=== PATIENT | male | born 1940 | race Caucasian/White ===

== ENCOUNTER 2018-04-29 15:45 | Emergency (ER) | payer MEDICARE ==
[~2018-04-29] VITALS: Ht 188 cm; Wt 93.0 kg
[~2018-04-29 15:45] MED LIST: ONDANSETRON 4 MG/2 ML (SDV) Z0FRAN ONE
[2018-04-29] MEDS ORDERED: ACETAMINOPHEN 500 MG TAB (TYLENOL) PO STA (15:57)
[2018-04-29 16:08] LABS: BASOPHILS % (AUTO) 0 % (0-10); EOSINOPHILS # (AUTO) 0.1 10^3/uL (0.0-0.3); EOSINOPHILS % (AUTO) 1 % (0-10); HEMATOCRIT 35 % (40-54); HEMOGLOBIN 11.3 G/DL (13.3-17.7); LYMPHOCYTES # (AUTO) 0.2 X 10^3 (1.0-4.0); LYMPHOCYTES % (AUTO) 3 % (12-44); MEAN CORPUSCULAR HEMOGLOBIN 33 PG (25-34); MEAN CORPUSCULAR HGB CONC 32 G/DL (32-36); MEAN CORPUSCULAR VOLUME 104 FL (80-99); MONOCYTES # (AUTO) 0.7 X 10^3 (0.0-1.0); MONOCYTES % (AUTO) 10 % (0-12); NEUTROPHILS # (AUTO) 5.9 X 10^3 (1.8-7.8); NEUTROPHILS % (AUTO) 85 % (42-75); PLATELET COUNT 113 10^3/uL (130-400); RED BLOOD COUNT 3.39 10^6/uL (4.35-5.85); RED CELL DISTRIBUTION WIDTH 18.1 % (10.0-14.5)
[2018-04-29 16:12] LABS: INR 1.2 (0.8-1.4); PROTHROMBIN TIME PATIENT 15.5 SEC (12.2-14.7)
[2018-04-29 16:22] LABS: ALBUMIN 3.8 GM/DL (3.2-4.5); BILIRUBIN,TOTAL 2.1 MG/DL (0.1-1.0); CALCIUM 8.4 MG/DL (8.5-10.1); CREATININE SERUM 4.03 MG/DL (0.60-1.30); POTASSIUM 3.9 MMOL/L (3.6-5.0); TOTAL PROTEIN 6.9 GM/DL (6.4-8.2)
[2018-04-29 16:29] LABS: ANISOCYTOSIS SLIGHT; BAND NEUTROPHILS 35 %; BASOPHILS % (MANUAL) 0 %; EOSINOPHILS % (MANUAL) 0 %; LYMPHOCYTES % (MANUAL) 3 %; MONOCYTES % (MANUAL) 12 %; NEUTROPHILS % (MANUAL) 50 %; TOXIC GRANULATION/VACUOLAZATIO 1+
[2018-04-29] MEDS ORDERED: NS IV 500 ML 500 ML ONE (16:38)
[2018-04-29] MEDS ORDERED: NS IV 500 ML 500 ML IV ONE (16:40)
--- NOTE | 2018-04-29 16:46 | ED General ---
General Chief Complaint: Fever-Adult/Adol Stated Complaint: FEVER Nursing Triage Note: PT ARRIVED PER EMS, FROM DIALYSIS PT CO OF FEVER AND HAS SL CONFUSION STARTED THIS AFTERNOON. PT FINISHED DIALYSIS. Nursing Sepsis Screen: No Definite Risk Source of Information: Patient Exam Limitations: No Limitations History of Present Illness Date Seen by Provider: Apr 29, 2018 Time Seen by Provider: 15:52 Initial Comments Here with report of fever and altered mental status. reports that he was somewhat confused yesterday and there was a little better and then went to dialysis today. He is afebrile at the start of dialysis but at the end if temperature 103 degrees. Heart rate. EMS had same on their arrival. He was confused for them but improved a little afterwards. On arrival here he was able to the state date and time as well as place. He knows himself and his . No focal deficits. States that he does not feel well and has vomited. Denies chest pain or breathing problems. He does not urinate since he has started dialysis. He has been on long-term dialysis. Timing/Duration: 24 Hours, Changing Over Time Severity: Moderate Associated Systoms: No Chest Pain, No Cough; Fever/Chills; No Headaches; Malaise, Nausea/Vomiting; No Shortness of Air; Weakness Allergies and Home Medications Allergies Coded Allergies: No Known Drug Allergies (Unverified , 04/29/18) Patient Home Medication List Home Medication List Reviewed: Yes Review of Systems Review of Systems Constitutional: see HPI, chills, fever EENTM: No nose congestion, No throat pain Respiratory: No cough, No short of breath Cardiovascular: No chest pain, No edema Gastrointestinal: No abdominal pain; nausea, vomiting Genitourinary: no symptoms reported Musculoskeletal: no symptoms reported Skin: no symptoms reported Psychiatric/Neurological: See HPI, Weakness All Other Systems Reviewed Negative Unless Noted: Yes Past Qzsqcmb-Bpqxqh-Hkboeu Hx Past Med/Social Hx: Reviewed Nursing Past Med/Soc Hx Patient Social History Alcohol Use: Denies Use Recreational Drug Use: No Smoking Status: Never a Smoker Recent Foreign Travel: No Contact w/Someone Who Travel: No Recent Infectious Disease Expo: No Recent Hopitalizations: No Past Medical History Surgeries: Yes Vascular Surgery Respiratory: No Cardiac: Yes Hypertension Neurological: No Genitourinary: Yes Dialysis Gastrointestinal: No Musculoskeletal: No Endocrine: Yes Diabetes, Insulin dep, Hypothyroidsim Cancer: No Family Medical History Reviewed Nursing Family Hx No Pertinent Family Hx Physical Exam-Suspected Sepsis Physical Exam Vital Signs Vital Signs - First Documented 04/29/18 15:45 Temp 102.8 Pulse 95 Resp 16 B/P (MAP) 136/65 (88) Pulse Ox 94 O2 Delivery Nasal Cannula O2 Flow Rate 3.50 Capillary Refill : Less Than 3 Seconds Blood Pressure Mean: 88 Height, Weight, BMI Height: 6'2.00" Weight: 205lbs. oz. 92.382324nw; BMI Method:Stated General Appearance: No Apparent Distress HEENT: PERRL/EOMI, Pharynx Normal Neck: Non Tender, Supple Respiratory: Lungs Clear, Normal Breath Sounds Cardiovascular: Regular Rate, Rhythm, No Murmur Gastrointestinal: Non Tender, Soft Back: Normal Inspection, No CVA Tenderness, No Vertebral Tenderness Extremity: Normal Range of Motion, Non Tender Neurologic/Psychiatric: Alert, Oriented x3 Skin: normal color, warm/dry Focused Exam Lactate Level 04/29/18 15:50: Lactic Acid Level 2.05*H 04/29/18 17:50: Lactic Acid Level 0.82 Lactic Acid Level Laboratory Tests Test 04/29/18 15:50 04/29/18 17:50 Lactic Acid Level 2.05 MMOL/L (0.50-2.00) *H 0.82 MMOL/L (0.50-2.00) Progress/Results/Core Measures Suspected Sepsis Recent Fever Within 48 Hours: No Infection Criteria Present: None New/Unexplained Altered Menta: No Sepsis Screen: No Definite Risk SIRS Temperature:101.1 Pulse: 95 Respiratory Rate: 16 Laboratory Tests 04/29/18 15:50: White Blood Count 7.0 Blood Pressure 136 /65 Mean: 88 04/29/18 15:50: Lactic Acid Level 2.05*H 04/29/18 17:50: Lactic Acid Level 0.82 Laboratory Tests 04/29/18 15:50: Creatinine 4.03H, INR Comment 1.2, Platelet Count 113L, Total Bilirubin 2.1H Results/Orders Lab Results Laboratory Tests Test 04/29/18 15:50 04/29/18 17:50 Range/Units White Blood Count 7.0 4.3-11.0 10^3/uL Red Blood Count 3.39 L 4.35-5.85 10^6/uL Hemoglobin 11.3 L 13.3-17.7 G/DL Hematocrit 35 L 40-54 % Mean Corpuscular Volume 104 H 80-99 FL Mean Corpuscular Hemoglobin 33 25-34 PG Mean Corpuscular Hemoglobin Concent 32 32-36 G/DL Red Cell Distribution Width 18.1 H 10.0-14.5 % Platelet Count 113 L 130-400 10^3/uL Mean Platelet Volume 10.0 7.4-10.4 FL Neutrophils (%) (Auto) 85 H 42-75 % Lymphocytes (%) (Auto) 3 L 12-44 % Monocytes (%) (Auto) 10 0-12 % Eosinophils (%) (Auto) 1 0-10 % Basophils (%) (Auto) 0 0-10 % Neutrophils # (Auto) 5.9 1.8-7.8 X 10^3 Lymphocytes # (Auto) 0.2 L 1.0-4.0 X 10^3 Monocytes # (Auto) 0.7 0.0-1.0 X 10^3 Eosinophils # (Auto) 0.1 0.0-0.3 10^3/uL Basophils # (Auto) 0.0 0.0-0.1 10^3/uL Neutrophils % (Manual) 50 % Lymphocytes % (Manual) 3 % Monocytes % (Manual) 12 % Eosinophils % (Manual) 0 % Basophils % (Manual) 0 % Band Neutrophils 35 % Toxic Granulation 1+ Anisocytosis SLIGHT Macrocytosis MODERATE Prothrombin Time 15.5 H 12.2-14.7 SEC INR Comment 1.2 0.8-1.4 Activated Partial Thromboplast Time 32 24-35 SEC Sodium Level 139 135-145 MMOL/L Potassium Level 3.9 3.6-5.0 MMOL/L Chloride Level 89 L 98-107 MMOL/L Carbon Dioxide Level 33 H 21-32 MMOL/L Anion Gap 17 H 5-14 MMOL/L Blood Urea Nitrogen 17 7-18 MG/DL Creatinine 4.03 H 0.60-1.30 MG/DL Estimat Glomerular Filtration Rate 15 BUN/Creatinine Ratio 4 Glucose Level 134 H 70-105 MG/DL Lactic Acid Level 2.05 *H 0.82 0.50-2.00 MMOL/L Calcium Level 8.4 L 8.5-10.1 MG/DL Corrected Calcium 8.6 8.5-10.1 MG/DL Total Bilirubin 2.1 H 0.1-1.0 MG/DL Aspartate Amino Transf (AST/SGOT) 113 H 5-34 U/L Alanine Aminotransferase (ALT/SGPT) 182 H 0-55 U/L Alkaline Phosphatase 181 H 40-136 U/L C-Reactive Protein High Sensitivity 18.58 H 0.00-0.50 MG/DL Total Protein 6.9 6.4-8.2 GM/DL Albumin 3.8 3.2-4.5 GM/DL Micro Results Microbiology 04/29/18 Influenza Types A,B Antigen (ARIAN) - Final, Complete My Orders Orders - CARY SAUCEDO MD Cbc With Automated Diff (04/29/18 15:57) Comprehensive Metabolic Panel (04/29/18 15:57) Blood Culture (04/29/18 15:57) Sputum Culture (04/29/18 15:57) Protime With Inr (04/29/18 15:57) Partial Thromboplastin Time (04/29/18 15:57) Chest 1 View, Ap/Pa Only (04/29/18 15:57) Saline Lock/Iv-Start (04/29/18 15:57) Vital Signs Adult Sepsis Patie Q15M (04/29/18 15:57) O2 (04/29/18 15:57) Remove Rings In Anticipation O (04/29/18 15:57) Lactic Acid Analyzer (04/29/18 15:57) Influenza A And B Antigens (04/29/18 15:57) Acetaminophen Tablet (Tylenol Tablet) (04/29/18 15:57) Manual Differential (04/29/18 15:50) Saline Lock/Iv-Start (04/29/18 16:40) Ns Iv 500 Ml (Sodium Chloride 0.9%) (04/29/18 16:40) Ns Iv 500 Ml (Sodium Chloride 0.9%) (04/29/18 16:38) Hs C Reactive Protein (04/29/18 17:57) Doxycycline 100mg Po (04/29/18 18:41) Medications Given in ED Current Medications Medications Dose Ordered Sig/Chrystal Route Start Time Stop Time Status Last Admin Dose Admin Sodium Chloride 500 ml @ 0 mls/hr Q0M ONCE IV 04/29/18 16:40 04/29/18 16:41 DC 04/29/18 16:46 500 MLS/HR Vital Signs/I&O 04/29/18 04/29/18 15:45 15:45 Temp 102.8 Pulse 95 Resp 16 B/P (MAP) 136/65 (88) Pulse Ox 94 95 O2 Delivery Nasal Cannula Nasal Cannula O2 Flow Rate 3.50 3.50 Capillary Refill : Less Than 3 Seconds Blood Pressure Mean: 88 Progress Note : Progress Note Seen and evaluated on arrival by EMS. IV by EMS. Labs, chest x-ray, blood cultures and lactic acid ordered. Patient does not urinate so no UA ordered. Normal saline 500 mL bolus ordered. Monitor patient. 174: Overall doing much better and fevers much reduced. We will repeat lactic acid and add CRP to see how that is doing to help determine and the direction of further care for him. 1830: Lactic acid is markedly reduced and in normal range. CRP is quite elevated though. Patient states that he feels much better and still would like to go home if possible. We will attempt to walk him and see how he does. He would like to go home if he is steady on his feet. We will address that after evaluation. 1840: Patient is walking without difficulty and at his normal pace and balance. feels comfortable with that. Patient feels like he would like to go home. We did have a conversation with him regarding return precautions as well as the and they agree. Due to his presentation today, we will go ahead and initiate antibiotics. Doxycycline 100 mg by mouth initiated now and we will continue that twice a day for 7 days. Diagnostic Imaging Diagonstic Imaging: Xray Plain Films/CT/US/NM/MRI: chest Comments NAME: [facility] REC#: [id number] PT STATUS: REG ER : 1940 PHYSICIAN: CARY SAUCEDO MD ADMIT DATE: 04/29/18/ER Signed Date of Exam: 04/29/18 CHEST 1 VIEW, AP/PA ONLY INDICATION: Fever. COMPARISON: 06/15/2007. EXAMINATION: Single view of the chest was obtained. FINDINGS: Stable cardiac enlargement without pulmonary edema or acute infiltrate. There is no pneumothorax. The osseous structures are stable. IMPRESSION: Stable cardiac enlargement without pulmonary edema or infiltrate. Dictated by: Dictated on workstation # [id number] Dict: 04/29/18 164 Trans: 04/29/181646 Interpreted by: CRISELDA ANGULO Electronically signed by: CRISELDA ANGULO 04/29/181646 Departure Impression Primary Impression: Fever Qualified Codes: R50.9 - Fever, unspecified Additional Impression: Viral illness Disposition: HOME, SELF-CARE Condition: Stable Departure-Patient Inst. Decision time for Depature: 18:50 Patient Instructions: Fever, Adult (DC), VIRAL SYNDROME Add. Discharge Instructions: All discharge instructions reviewed with patient and/or family. Voiced understanding. Take medications as directed. Continue dialysis as scheduled. It is very important that you return if you have any concerns. Return for worse pain, fever, vomiting, weakness, breathing problems, confusion or any other concerns as needed. Scripts Doxycycline Hyclate (Doxycycline Hyclate) 100 Mg Tablet 100 MG PO BID, #14 TAB 0 Refills Prov: CARY SAUCEDO MD 04/29/18 CARY SAUCEDO MD Apr 29, 2018 16:46
[2018-04-29] MEDS ORDERED: DOXYCYCLINE 100 MG (VIBRAMYCIN) TABLET PO STA (18:41)
--- NOTE | 2018-04-29 18:45 | NUR ---
pt ambulated in [place]
[2018-04-29] MEDS ORDERED: DOXY100T2 PO (18:46)
[2018-04-29 18:56] VITALS: BP 136/65
== END 2018-04-29 18:54 | disposition home or self-care (01) ==
LOC: EDUNIT# 15:45 → ER 15:46
DX: B34.9 Viral infection, unspecified (principal); I10 Essential (primary) hypertension; E11.9 Type 2 diabetes mellitus without complications; Z98.890 Other specified postprocedural states
CPT/HCPCS: 36415; 71045; 80053; 83605; 85007; 85027; 85610; 85730; 86141; 87040; 87804

== ENCOUNTER → 2018-08-12 | Outpatient (CLI) | payer MEDICARE ==
[~2018-08-12] MED LIST changes: +DOXY100T2 PO; -ONDANSETRON 4 MG/2 ML (SDV) Z0FRAN ONE
--- NOTE | 2018-08-12 10:08 | Diagnostic Imaging Report ---
CLINICAL INDICATION: Patient with right upper quadrant and lower abdominal pain. Patient is on dialysis. History of cholecystectomy seven years ago. EXAM: Right upper quadrant ultrasound. COMPARISON: None. FINDINGS: Portions of the intra-abdominal structures are obscured by patient body habitus and overlying bowel gas. The aorta, IVC, and pancreas are obscured by overlying bowel gas and cannot be evaluated on this exam. The liver parenchyma is grossly homogenous. The liver surface is smooth. Liver is enlarged measuring 18.2 cm. There is no liver mass seen. The main portal vein demonstrates hepatopetal flow. There is no intrahepatic ductal dilation. Common bile duct measures up to 1.3 mm proximally and tapers to 9 mm in its more proximal and midportion. This is nonspecific. Gallbladder surgically absent. The spleen has normal echogenicity and shape. The spleen is slightly enlarged measuring 13.1 cm in craniocaudal dimension. Both kidneys are not well delineated and have a slightly hyperechoic appearance. There appears to be some cortical thinning involving the right kidney compared to left side. The right and left kidneys measure 9.2 cm and 8.2 cm in craniocaudal dimension. There is no abdominal ascites. IMPRESSION: 1: Patient is post cholecystectomy. There is nonspecific prominence of the proximal common hepatic duct measuring up to 1.3 mm. There is no intrahepatic ductal dilation. A distal common duct cannot be visualized and is obscured on this exam. If there are elevated liver enzymes, then MRCP may help better evaluate for any duct obstruction or abnormality. 2: Mild hepatomegaly and splenomegaly. 3: Atrophic appearance of the right kidney and diffuse hyperechogenicity seen throughout both kidneys which may be related to chronic medical renal disease. 4: The pancreas is unable to be visualized. If there is clinical concern for pancreatic abnormality, serology tests CT scan may better evaluate. Dictated by: Dictated on workstation # [id number]
== END ==
LOC: RAD 07:35
PROVIDERS: ATTEND Internal Medicine Nephrology
DX: N28.89 Other specified disorders of kidney and ureter (principal); R16.2 Hepatomegaly with splenomegaly, not elsewhere classified; Z99.2 Dependence on renal dialysis; Z90.49 Acquired absence of other specified parts of digestive tract
CPT/HCPCS: 76700

== ENCOUNTER 2019-05-18 07:40 | Emergency (ER) | payer MEDICARE ==
[~2019-05-18] VITALS: Ht 182 cm; Wt 200.0 kg
[2019-05-18] MEDS ORDERED: EPINEPHrine 0.1 MG/ML 10 ML (HOSPIRA) SYR IJ ONE (07:41)
[2019-05-18] MEDS ORDERED: CALCIUM CHLORIDE 1 GM/10 ML (IMS) SYR INJ ONE (07:41)
[2019-05-18] MEDS ORDERED: SODIUM BICARB 8.4% 50 MEQ/50 ML VIAL IV ONE (07:41)
--- NOTE | 2019-05-18 07:41 | NUR ---
PT ARRIVED PER EMS, CPR IN PROGRESS, I-GEL IN PLACE RESP PER BMV. AT BEDSIDE 0742 RHYTM CHECK- ASYSTOLE CPR CONT 0743 CALICUM CHLORIDE 10MEQ GIVEN IV PER IO CPR CONT 0746 BICARB 1 AMP GIVEN IVP 0747 EPPI 1 AMP GIVEN IVP 0749 PULSE CHECK, NO PULSE PEA CONT CPR [address] SAUCEDO, NO CARDIAC UVBEDRFQ-CTK-DIS CONT 0751 EPPI 1AMP IVP GIVEN, END TIDAL [address] 10 MEQ IVP 0756 EPPI 1 AMP IVP. END TIDAL 40 0759 NO PULSE, ASYSTOLE. DR GLEZ TIME OF 0759 0810 TO ROOM W PASTORAL CARE. WISHES BODY TO BE RELEASED TO [facility]. 0820 [facility]ERNE TRANSPLANT NOTIFIED OF . 0843 BERNE CALLED TO SAY PT NOT CANIDATE FOR REFERRAL 0747 ANGÉLICA LANGLEY NOTIFIED THAT FAMILY HAS REQUESTED FOR MORTUARY
--- NOTE | 2019-05-18 07:59 | NUR ---
PT RECIEVED 1L NS FROM EMS
--- NOTE | 2019-05-18 08:18 | ED CPR ---
HPI-CPR General Chief Complaint: Code Blue Stated Complaint: CODE Source of Information: Patient Exam Limitations: No Limitations History of Present Illness Date Seen by Provider: May 18, 2019 Time Seen by Provider: 07:41 Initial Comments Here by EMS with CPR in progress. Apparently the patient was found unresponsive by fire department. The patient and his were leaving for dialysis this morning at about 7 AM when he collapsed. His assisted him to the ground and then he became responsive again and she was able to get him up to go towards the car when he collapsed again and became unresponsive. She did call 911 and fire responded. Onset at about 7 AM with their arrival a few minutes later. CPR initiated about 5 minutes after the initial call. Fire apparently found the patient in V. fib and he was shocked twice with CPR continuing. EMS arrived at about 0720 and initiated ACLS measures. He did get epinephrine 4 doses as well as CPR and 2 more shocks. I gel was placed with positive end-tidal CO2. Blood sugar was 170s. He does have an intraosseous access to the left tibia. Patient has been in asystole for at least 10 minutes on arrival. reports that he was sick yesterday and with a little better this morning. He was able to sleep all night. He told her that he felt weak yesterday. He is due for dialysis this morning. Initial Complaints: Collapsed Witnessed Arrest: Yes Bystander CPR: No Paramedics Initial Findings: Unresponsive, V-FIB Pre Hospital Treatment: Bag Valve Mask, CPR/Thumper, Defibrillation, Oxygen, IV Fluids, Epinephrine (mg) (4) Allergies and Home Medications Allergies Coded Allergies: No Known Drug Allergies (Unverified , 04/29/18) Home Medications Doxycycline Hyclate 100 Mg Tablet, 100 MG PO BID Prescribed by: CARY SAUCEDO on 04/29/18 3802 Patient Home Medication List Home Medication List Reviewed: Yes Review of Systems Review of Systems Constitutional: see HPI Other Comments Unable to complete review of systems due to CPR in progress Past Bmtyrfk-Qhircj-Avlilj Hx Past Med/Social Hx: Reviewed Nursing Past Med/Soc Hx Patient Social History Recent Hopitalizations: No Past Medical History Surgeries: Yes Vascular Surgery Respiratory: No Cardiac: Yes Hypertension Neurological: No Genitourinary: Yes Dialysis Gastrointestinal: No Musculoskeletal: No Endocrine: Yes Diabetes, Insulin dep, Hypothyroidsim Cancer: No Family Medical History No Pertinent Family Hx Per records due to CPR in progress Physical Exam Vital Signs Vital Signs - First Documented 05/18/19 07:41 Temp 35.3 Pulse 0 Resp 8 B/P (MAP) 0/0 (0) Pulse Ox 0 O2 Delivery Ambu Bag O2 Flow Rate 15.00 Capillary Refill : Height, Weight, BMI Height: 6'2.00" Weight: 205lbs. oz. 92.029610lk; BMI Method:Stated General Appearance: Other (unresponsive with CPR in progress) HEENT: Other (Pupils fixed and dilated bilateral) Respiratory: Decreased Breath Sounds (bilateral with bagging) Cardiovascular: Other (no pulse and asystole or PEA on the monitor) Neurologic/Psychiatric: Other (unresponsive with CPR in progress) Skin: Cool, Pallor Progress/Results/Core Measures Results/Orders My Orders Orders - CARY SAUCEDO MD Calcium Chloride 10% Injection (Calcium (05/18/19 07:41) Epinephrine Emergency Syringe (Epinephr (05/18/19 07:41) Sodium Bicarbonate 8.4% Vial (Sodium Bic (05/18/19 07:41) Vital Signs/I&O 05/18/19 05/18/19 07:41 09:32 Temp 35.3 Pulse 0 0 Resp 8 0 B/P (MAP) 0/0 (0) 0/0 (0) Pulse Ox 0 0 O2 Delivery Ambu Bag O2 Flow Rate 15.00 15.00 Progress Progress Note : Progress Note Seen and evaluated on arrival by EMS with CPR in progress. Initial rhythm check showed asystole. Given his history of dialysis, calcium chloride 1 amp IV given as well as one amp of bicarbonate. CPR continued. We did give epinephrine 1 mg IV. 0750: Ultrasound assessment of cardiac activity shows no activity and patient in PEA. CPR continued pending 's arrival. End-tidal CO2 does improve with CPR and is 30s. 0759:2 more milligrams of epi as well as 1 amp of calcium were given. Patient remained persistently in asystole and no cardiac activity noted on ultrasound. Patient has had prolonged down time and has significant comorbidities including end-stage renal disease on dialysis. Despite all efforts, asystole remains. Code called with time of at 0759. I did discuss all of this with the who arrived at about this time. She states that she knew that he was not in and make it he collapsed. She was appreciative of care. I have paged Dr. Groves. Case discussed with him and he will sign the certificate. I will send a copy of the chart and Dr. Groves. Departure Impression Primary Impression: Cardiopulmonary arrest Additional Impression: End stage renal disease on dialysis Disposition: 20 Condition: Departure-Patient Inst. Decision time for Depature: 07:59 Referrals: DA GROVES MD (PCP/Family) Primary Care Physician Copy Copies To 1: DA GROVES MD, TIMOTHY D MD May 18, 2019 08:18
--- NOTE | 2019-05-18 08:46 | NUR ---
pt Code and : Waited for pt's Eunice and escorted her to the family room where Dr. Mckeon notified her of the pt's and offered supportive presence. Pt's said that she did not expect him to live when she saw CPR being given at their home. Today is their 46th anniversary. Offered empathic listening and encouraging healing sharing about their time traveling together. Eunice said the pt wanted to celebrate their anniversary yesterday, so they ate out for breakfast and lunch and then took a drive throughout the surrounding area, one of their favorite things to do together. [employer] is contacting the mortuary, and this policy writer contacted [facility] per Eunice's request.
[2019-05-18 09:32] VITALS: BP 0/0
== END 2019-05-18 09:34 | disposition expired ==
LOC: ER 07:40 → EDUNIT# 07:40 → ER 09:34
DX: I46.9 Cardiac arrest, cause unspecified (principal); E11.22 Type 2 diabetes mellitus with diabetic chronic kidney disease; I12.0 Hypertensive chronic kidney disease with stage 5 chronic kidney disease or end stage renal disease; N18.6 End stage renal disease; Z99.2 Dependence on renal dialysis